=== PATIENT | female | born 1990 | race Caucasian/White ===

== ENCOUNTER 2020-10-21 08:34 | Emergency (ER) | payer OTHER, MEDICAID, SELFPAY ==
[2020-10-21 08:40] VITALS: BP 127/83; PULSE 86; RESP 18; TEMP 36.7; O2SAT 99; BMI 43.7
--- NOTE | 2020-10-21 08:54 | ED_ITS ---
HPI - Female Genitourinary General Chief complaint: Urogenital-Female Stated complaint: uterine pain Time Seen by Provider: 10/21/20 08:45 History of Present Illness HPI Narrative: Patient is a 30-year-old female who presents with sudden onset of uterine pain this morning. She states she woke up at around 6:30 a.m. she thought she does had to use the restroom she went to the bathroom but her pain intensified and she is feeling the much worse. She says that she is unable to stand up she has intense central localized pain. She denies any dysuria. No fever chills. She has no vaginal bleeding. She is on control. She is not expecting her menses soon. She did not take anything prior for pain. She states that she is taking control. She denies any vaginal discharge. She states that she was in her normal state of health yesterday. Related Data Allergies Allergy/AdvReac Type Severity Reaction Status Date / Time Penicillins Allergy Severe Anaphylaxis Verified 10/21/20 09:09 Review of Systems Review of Systems Narrative: GENERAL: Denies chills, fatigue, malaise, fever, sweats, travel HEENT: Denies sinus pain, ear pain, sore throat, difficulty swallowing, neck pain RESPIRATORY: Denies dyspnea, cough, wheezing, hemoptysis, sputum. CARDIOVASCULAR: Denies chest pain, palpitations, orthopnea, edema GASTROINTESTINAL: Denies nausea, vomiting, abdominal pain, diarrhea, constipation, melena. 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 MUSCULOSKELETAL: Denies weakness, joint pain, or bony pain SKIN: No rash, no erythema, no pruritus NEUROLOGIC: Denies weakness, dizziness, headache, numbness, change in speech, confusion PSYCHIATRIC: No concerning psychosocial issues. 12 point review of systems is negative except for those stated above and HPI Exam Initial Vital Signs Initial Vital Signs: Vital Signs Temperature 98.1 F 10/21/20 08:40 Pulse Rate 86 10/21/20 08:40 Respiratory Rate 18 10/21/20 08:40 Blood Pressure 127/83 10/21/20 08:40 Pulse Oximetry 99 10/21/20 08:40 GENERAL: Alert 30-year-old female appears uncomfortable and in no acute distress. HEENT: Head atraumatic,EOMI, pupils reactive, face symmetric, moist mucous membranes CARDIOVASCULAR: Regular rate and rhythm without murmurs, rubs or gallops. RESPIRATORY: Breath sounds equal bilaterally, no wheezes rales or rhonchi. ABDOMEN: Soft, significant suprapubic pain no lateralization of pain no upper abdominal pain no significant right lower quadrant pain : No CVA tenderness PELVIC: External genitalia is normal, no vaginal bleeding, no vaginal discharge, no odor, cervical os is closed, no mild right-sided adnexal tenderness EXTREMITIES: Normal range of motion, no clubbing or edema. Neurovascularly intact NEUROLOGICAL: Alert and oriented x4.Normal gait and speech. SKIN: Warm, dry, no laceration, no petechiae, no rashes or lesions. Course Orders Ordered: ED Orders 10/21/20 08:54 US pelvic complete Stat 10/21/20 08:57 Complete Blood Count AUTO DIFF Stat Comprehensive Metabolic Panel Stat 10/21/20 10:36 CT abdomen pelvis w con Stat Discontinued Medications Ketorolac Tromethamine (Ketorolac 30 Mg/Ml Vial) 30 mg IV NOW ONE Stop: 10/21/20 08:57 Last Admin: 10/21/20 09:06 Dose: 30 mg Documented by: MASOUD Morphine Sulfate (Morphine 4 Mg/Ml Inj) 4 mg IV NOW ONE Stop: 10/21/20 10:51 Last Admin: 10/21/20 10:55 Dose: 4 mg Documented by: MASOUD Vital Signs Vital signs: Vital Signs - 8 hr 10/21/20 08:40 10/21/20 10:57 10/21/20 10:58 Temperature 98.1 F Pulse Rate 86 77 77 Respiratory Rate 18 Blood Pressure 127/83 126/73 Pulse Oximetry 99 89 L 99 10/21/20 11:00 Temperature Pulse Rate 70 Respiratory Rate Blood Pressure 121/64 Pulse Oximetry 100 MDM - Female Genitourinary Lab Data Result diagrams: 10/21/20 08:57 10/21/20 08:57 Labs: Lab Results 10/21/20 10/21/20 Range/Units 08:57 08:57 WBC 8.2 (4.5-11.0) X10^3/uL RBC 4.24 (4.0-5.2) X10^6/uL Hgb 13.3 (12.0-16.0) g/dL Hct 39.2 (36-46) % MCV 92.4 (80-100) fL MCH 31.3 (26-34) PG MCHC 33.8 (30-36) % RDW 12.9 (11.6-14.8) % Plt Count 181 (150-400) X10^3/uL Neut % (Auto) 65.0 (50-75) % Lymph % (Auto) 27.4 (25-40) % [place] % (Auto) 5.2 (3-14) % Eos % (Auto) 1.4 L (2-4) % Baso % (Auto) 1.0 (0-2) % Neut # (Auto) 5400 (0557-8146) /uL Lymph # (Auto) 2200 (8937-8468) /uL [place] # (Auto) 400 (0-900) /uL Eos # (Auto) 100 (0-450) /uL Baso # (Auto) 100 (0-100) /uL Sodium 138 (137-145) mmol/L Potassium 4.3 (3.4-5.1) mmol/L Chloride 108 H (98-107) mmol/L Carbon Dioxide 23 (22-32) mmol/L BUN 7 (7-17) mg/dL Creatinine 0.49 L (0.52-1.04) mg/dL Estimated GFR > 60.0 (>60) mL/min BUN/Creatinine Ratio 14.3 (6-22) Glucose 93 (70-100) mg/dL Calcium 9.6 (8.4-10.2) mg/dL Total Bilirubin 0.3 (0.2-1.3) mg/dL AST 24 (14-36) IU/L ALT 23 (<35) IU/L Alkaline Phosphatase 60 (38-126) U/L Total Protein 7.1 (6.3-8.2) g/dL Albumin 4.2 (3.5-5.0) g/dL Globulin 2.9 (1.7-4.1) g/dL Albumin/Globulin Ratio 1.4 (1.0-2.8) Point of Care Testing Test Results Negative Urine Dip Bedside Urine Glucose Negative Bedside Urine Bilirubin - Negative Bedside Urine Ketone - Negative Urine Specific [place] 1.015 Bedside Urine Occult Blood - Negative Bedside Urine pH 6.0 Bedside Urine Protein - Negative Bedside Urine Urobilinogen - Negative Bedside Urine Nitrite - Negative Bedside Urine Leukocytes - Negative Esterase Imaging Data US - [employer] DEAF/HARD OF HEARING: Radiologist's Impression: PROCEDURE: US PELVIC COMPLETE INDICATIONS: intense pain TECHNIQUE: Real-time scanning was performed of the pelvic organs, with image documentation. Additional endovaginal scanning was necessary due to incomplete visualization of the adnexal and endometrial structures by transabdominal scanning. COMPARISON: None. FINDINGS: Uterus: Uterus is normal in size at 7.3 x 4.2 x 3.9 cm. The endometrium measures 4 mm in combined thickness. A small amount of anechoic fluid can be seen along the cervical canal. Ovaries: The right ovary measures 4.2 x 3.1 x 2.2 cm and demonstrates an irregular thick-walled cystic focus that measures 3.7 x 1.2 x 1.4 cm. The left ovary veronica ures 4.9 x 4.3 x 2.4 cm and demonstrates a simple cyst that measures 4 cm. The ovaries have a normal sonographic appearance. No adnexal masses are seen. Other: A wyxy-lv-xnxestsm amount of anechoic free fluid can be seen within the cul-de-sac and both adnexal regions. IMPRESSION: Likely collapsing hemorrhagic cyst involving the right ovary. If it would be clinically appropriate, a followup pelvic ultrasound could be considered in 6 weeks to assure resolution/ improvement. A there is a syne-ne-jvxtnhlc amount of simple appearing free fluid seen within the pelvis. Although unlikely in this patient with a given history of Nexplanon, please correlate with status for potential ectopic , given that the implant is approximately 5 years old. Dictated by: Derek Brown M.D. on 10/21/2020 at 9:30 Approved by: Derek Brown M.D. on 10/21/2020 at 9:34 CT scan - abdomen/pelvis: Radiologist's Impression: PROCEDURE: CT ABDOMEN PELVIS W CON INDICATIONS: severe lower ab pain TECHNIQUE: After the administration of IV contrast, axial sections were acquired from the lung bases to the pubic symphysis. Coronal and sagittal reformats were performed. For radiation dose reduction, the following was used: automated exposure control, adjustment of mA and/or kV according to patient size. COMPARISON: [facility], , [place] PELVIC COMPLETE, 10/21/2020, 9:46. FINDINGS: Image quality: Excellent. Lung bases: Unremarkable. Heart: No significant findings. ABDOMEN: Liver: Unremarkable. Gallbladder: Unremarkable. Biliary ducts: Unremarkable. Pancreas: Unremarkable. Spleen: Unremarkable. Adrenal Glands: Unremarkable. Kidneys and Ureters: Unremarkable. Stomach and Bowel: Stomach, small bowel loops, and colon are unremarkable. A normal appendix is incidentally noted. Peritoneum: No abnormal intraperitoneal fluid. No free air. Ventral Wall: No hernia. Abdominal Nodes: No retroperitoneal or mesenteric adenopathy by size criteria. Vessels: Aorta and inferior vena cava are normal in size. PELVIS: Pelvic Organs: The uterus appears unremarkable. There is a simple appearing left ovarian cyst seen that measures up to 3.7 cm. There is mild free fluid seen within the pelvis. A potential Bartholin's cyst can be seen on the left, as on series 4, image 36, measuring 18 mm. Bladder: Unremarkable. Pelvic Nodes: No enlarged lymph nodes. Miscellaneous: No inguinal hernias are seen. Bones: Unremarkable. IMPRESSION: A mild amount of free fluid can be seen within the pelvis. Please correlate with status. A simple appearing left ovarian cyst can be seen that measures up to 3.7 cm. If it would be clinically appropriate, a followup pelvic ultrasound could be considered in 6 weeks to assure resolution/ improvement. Normal appendix. Potential left Bartholin cyst. Dictated by: Derek Brown M.D. on 10/21/2020 at 10:01 [facility] Narrative Medical decision making narrative: At this time motion CT with ultrasound and clinical exam should chest right ovarian cyst. She does have some normal discharge on her pelvic exam at this time it does not seem to be abnormal or infectious. Concern for PID is extremely low. Blood work is overall reassuring. Patient's pain improved with Toradol and morphine. Updated patient on her test results and explained them to her. Discharge Plan Departure Patient Disposition: Home Clinical Impression: Ovarian cyst Qualifiers: Laterality: right Qualified Code(s): N83.201 - Unspecified ovarian cyst, right side Instructions: DI for Ovarian Cyst Activity Restrictions/Additional Instructions: *You have been diagnosed with ovarian cyst *What to do: At this time he likely have had an ovarian cyst, you also have a left ovarian cyst as well. *Continue to take medications as directed Motrin 800 mg every 8 hours if needed for kbza-xi-zfjrvsvv pain Tylenol 1000 mg every 6 hours if needed for ppya-ga-tmobygeq pain *Follow up with your primary care provider in 2-3 days *Return to ER if you should have increasing pain, fever, chills, excessive vaginal bleeding or any new, worsening or concerning symptoms
[2020-10-21] MEDS: KETOROLAC 30 MG/ML VIAL IV (09:06)
[2020-10-21 09:09] LABS: Add Manual Diff / Slide Review NO; Basophils Absolute Auto 100 /uL (0-100); Eosinophils Absolute Auto 100 /uL (0-450); Eosinophils Percent Auto 1.4 % (2-4); Hematocrit 39.2 % (36-46); Hemoglobin 13.3 g/dL (12.0-16.0); Lymphocytes Absolute Auto 2200 /uL (1100-4500); Lymphocytes Percent Auto 27.4 % (25-40); Mean Corpuscular HGB Conc 33.8 % (30-36); Mean Corpuscular Hemoglobin 31.3 PG (26-34); Mean Corpuscular Volume 92.4 fL (80-100); Monocytes Absolute Auto 400 /uL (0-900); Monocytes Percent Auto 5.2 % (3-14); Neutrophils Absolute Auto 5400 /uL (1500-7000); Platelet Count 181 X10^3/uL (150-400); Red Blood Cell Count 4.24 X10^6/uL (4.0-5.2); Red Cell Distribution Width 12.9 % (11.6-14.8); White Blood Cell Count 8.2 X10^3/uL (4.5-11.0)
[2020-10-21 09:21] LABS: Alanine Aminotransferase 23 IU/L (<35); Albumin 4.2 g/dL (3.5-5.0); Albumin Globulin Ratio 1.4 (1.0-2.8); Alkaline Phosphatase 60 U/L (38-126); Aspartate Aminotransferase 24 IU/L (14-36); BUN Creatinine Ratio 14.3 (6-22); Bilirubin Total 0.3 mg/dL (0.2-1.3); Blood Urea Nitrogen 7 mg/dL (7-17); Calcium 9.6 mg/dL (8.4-10.2); Carbon Dioxide 23 mmol/L (22-32); Chloride 108 mmol/L (98-107); Estimated Glomerular Filt Rate > 60.0 mL/min (>60); Globulin 2.9 g/dL (1.7-4.1); Glucose 93 mg/dL (70-100); HEMOLYSIS 18 (0-50); Potassium 4.3 mmol/L (3.4-5.1); Sodium 138 mmol/L (137-145); Total Protein 7.1 g/dL (6.3-8.2)
--- NOTE | 2020-10-21 10:36 | DI.CT.S_ITS ---
PROCEDURE: CT ABDOMEN PELVIS W CON INDICATIONS: severe lower ab pain TECHNIQUE: After the administration of IV contrast, axial sections were acquired from the lung bases to the pubic symphysis. Coronal and sagittal reformats were performed. For radiation dose reduction, the following was used: automated exposure control, adjustment of mA and/or kV according to patient size. COMPARISON: [facility], , PELVIC COMPLETE, 10/21/2020, 9:46. FINDINGS: Image quality: Excellent. Lung bases: Unremarkable. Heart: No significant findings. ABDOMEN: Liver: Unremarkable. Gallbladder: Unremarkable. Biliary ducts: Unremarkable. Pancreas: Unremarkable. Spleen: Unremarkable. Adrenal Glands: Unremarkable. Kidneys and Ureters: Unremarkable. Stomach and Bowel: Stomach, small bowel loops, and colon are unremarkable. A normal appendix is incidentally noted. Peritoneum: No abnormal intraperitoneal fluid. No free air. Ventral Wall: No hernia. Abdominal Nodes: No retroperitoneal or mesenteric adenopathy by size criteria. Vessels: Aorta and inferior vena cava are normal in size. PELVIS: Pelvic Organs: The uterus appears unremarkable. There is a simple appearing left ovarian cyst seen that measures up to 3.7 cm. There is mild free fluid seen within the pelvis. A potential Bartholin's cyst can be seen on the left, as on series 4, image 36, measuring 18 mm. Bladder: Unremarkable. Pelvic Nodes: No enlarged lymph nodes. Miscellaneous: No inguinal hernias are seen. Bones: Unremarkable. IMPRESSION: A mild amount of free fluid can be seen within the pelvis. Please correlate with status. A simple appearing left ovarian cyst can be seen that measures up to 3.7 cm. If it would be clinically appropriate, a followup pelvic ultrasound could be considered in 6 weeks to assure resolution/ improvement. Normal appendix. Potential left Bartholin cyst. Dictated by: Derek Brown M.D. on 10/21/2020 at 10:01 Approved by: Derek Brown M.D. on 10/21/2020 at 10:05
[2020-10-21] MEDS: MORPHINE 4 MG/ML INJ IV (10:55)
[2020-10-21 10:57] VITALS: PULSE 77; O2SAT 89
[2020-10-21 10:58] VITALS: BP 126/73; PULSE 77; O2SAT 99
[2020-10-21 11:00] VITALS: BP 121/64; PULSE 70; O2SAT 100
== END 2020-10-21 11:34 | disposition home or self-care (01) ==
PROVIDERS: Emergency Provider Emergency Medicine
DX: N83.201 Unspecified ovarian cyst, right side (principal)
CPT/HCPCS: 36415; 74177; 76830; 76856; 80053; 81003; 81025; 85025; 96374; 96375; 99284; J1885; J2270; Q9967